=== PATIENT | female | born 1935 | race Caucasian/White ===

== ENCOUNTER 2016-06-29 17:34 | Emergency (ER) | payer OTHER, BC ==
[~2016-06-29] VITALS: Ht 162.6 cm; Wt 54.8 kg
[2016-06-29] MEDS ORDERED: PERCOCET 5/31 TABLET PO (20:31)
[2016-06-29] MEDS ORDERED: LIDODERM 5% P1 PATCH TD (20:31)
[2016-06-29] MEDS ORDERED: MEDROL DOSEPAK4 MG PO (20:31)
[2016-06-29 20:57] VITALS: BP 191/82
== END 2016-06-29 20:59 | disposition home or self-care (01) ==
LOC: EME 17:34
DX: B02.29 Other postherpetic nervous system involvement (principal)
CPT/HCPCS: 99281; 99284; J7512